=== PATIENT | male | born 1940 | race Caucasian/White ===

== ENCOUNTER 2020-02-03 07:59 | Outpatient (CLI) | payer MEDICARE, SELFPAY ==
--- NOTE | ~2020-02-03 | CT_ITS ---
EXAMINATION: CT soft tissue neck w con DATE: 02/03/2020 08:44 INDICATION: Localized swelling/mass at the left neck TECHNIQUE: Computed tomography (CT) of the neck was performed with 75 mL Omnipaque-350 intravenous co ntrast. Automated exposure control and iterative reconstruction technique were employed. The dose-torsten gth product was 425.81 mGy-cm. COMPARISON: 12/09/2014 and 03/18/2014 FINDINGS: Postoperative change consistent with reported left-sided tonsillectomy, partial glossectomy and left neck dissection. There is a new 1.6 x 1.5 cm thick-walled cystic or centrally necrotic mass in the le ft parotid gland which could represent either a primary parotid neoplasm or enlarged lymph node. Righ t parotid and submandibular glands and the thyroid are unremarkable. No other masses or pathologicall y enlarged cervical lymphadenopathy. Chronic small calcified nodules in the soft tissues adjacent to the bilateral piriform sinuses and in the anterior superior mediastinum which could represent sequela of old granulomatous disease or phleboliths. Atherosclerotic disease of the bilateral carotid bulbs with 25% stenosis on the right and 50% stenosis on the left. Severe emphysema with mild biapical pleu ral-parenchymal scarring. Moderate to severe cervical spondylosis. IMPRESSION: 1. New 1.6 x 1.5 cm left parotid mass which given patient history is most concerning for recurrent me tastatic disease. Differential would also include primary parotid neoplasm either benign or malignant or suppurative lymph node in the appropriate clinical setting. Consider ultrasound-guided fine-needl e aspiration for further evaluation. 2. Severe emphysema. Reviewed, dictated and finalized at location A. IMPRESSION: 1. New 1.6 x 1.5 cm left parotid mass which given patient history is most jesus alberto rning for recurrent metastatic disease. Differential would also include primary parotid neoplasm either benign or malignant or suppurative lymph node in the a ppropriate clinical setting. Consider ultrasound-guided fine-needle aspiration for further evaluation. 2. Severe emphysema.
[2020-02-03 08:40] LABS: Estimated Glomerular Filt Rate > 60
== END 2020-02-03 08:00 | disposition home or self-care (01) ==
PROVIDERS: PCP Family Medicine
DX: R22.1 Localized swelling, mass and lump, neck (principal); J43.9 Emphysema, unspecified
CPT/HCPCS: 36415; 70491; Q9967

== ENCOUNTER 2021-02-06 10:52 | Emergency (ER) | payer MEDICARE, SELFPAY ==
[2021-02-06 11:00] VITALS: BP 212/112; PULSE 92; RESP 20; TEMP 36.2; O2SAT 95
--- NOTE | 2021-02-06 11:11 | ED.WOUNDLAC ---
HPI - Wound/Laceration General Chief Complaint: Wound/Laceration Stated Complaint: left thumb lac Time Seen by Provider: 02/06/21 11:06 History of Present Illness HPI narrative: 80 yo male presents to the ED with a table saw injury. He was reaching for a piece of wood and accidentally touched his left thumb to the blade. He has a laceartion to palmar aspect. He reports distal motor and sensory intact. Unsure of tetanus status. Related Data Home Medications Medication Instructions Recorded Confirmed aspirin 81 mg tablet,delayed 81 mg PO DAILY 11/03/19 release Allergies Allergy/AdvReac Type Severity Reaction Status Date / Time No Known Allergies Allergy Verified 02/06/21 11:02 Review of Systems Review of Systems: All systems reviewed & are unremarkable except as noted in HPI and below Constitutional: Constitutional: Denies fever(s) and Denies weakness ENT: Reports system reviewed and no additional complaints, except as documented Cardiovascular: Cardiovascular: Reports no additional cardiovascular complaints PMFSH Past Medical History Medical History Anxiety CAD (coronary artery disease) History of stroke Hyperlipidemia Hypogonadism in male Skin cancer of face Surgical History Surgical History History of tonsillectomy Family History Family History Father Cancer Social History Social History Smoking status: Former smoker Smoking end date: 11/12/97 Alcohol intake: former Substance use: never Substance use type: does not use Gender identity (if verbalized by the patient): Male Exam Const: General: no acute distress and alert Nutritional Appearance: thin Orientation/consciousness: patient oriented x3 HENMT: Head: normal to inspection Neck: Neck: normal visual inspection Resp: Effort & Inspection: normal respiratory effort Auscultation: clear to auscultation bilaterally Cardio: Rate: regular rate Rhythm: regular rhythm Other: 2 + left radial Skin: Wounds: wounds noted (left thumb flap laceration, maceration of the border and underlying tissue) Neuro: General: patient oriented x3, moves all extremities and no focal motor deficits Speech: normal speech Extrem: Other: Full ROM of left thumb Course Vital Signs Vital signs: Vital Signs Temperature 36.2 C L 02/06/21 11:00 Pulse Rate 92 02/06/21 11:00 Respiratory Rate 20 02/06/21 11:00 Blood Pressure 212/112 H 02/06/21 11:00 Pulse Oximetry 95 02/06/21 11:00 Temperature 36.4 C L 02/06/21 13:00 Pulse Rate 91 02/06/21 13:00 Respiratory Rate 19 02/06/21 13:00 Blood Pressure 189/90 H 02/06/21 13:00 Pulse Oximetry 97 02/06/21 13:00 Procedures Laceration Laceration 1: Site: hand Side (If applicable): left (thumb) Size (cm): 4 Description: flap Depth: simple, single layer Local Anesthetic: lidocaine 1% Amount of anesthesia used (mL): 3 Pre-repair: wound explored and irrigated extensively (small piece of wood removed) ====== Skin Level ====== Skin layer closed with: nylon Size (cm): 5-0 Number of sutures: 12 Technique: simple, interrupted and horizontal mattress ====== Subcutaneous Layer ====== Subcutaneous layer closed with: vicryl Size: 5-0 Number of sutures: 6 ====== Muscle Layer ====== ====== Tendon Layer ====== MDM - Wound/Laceration MDM Narrative Medical decision making narrative: He has significant soft tissue injury. Laceration closed relatively well. Differential Diagnosis Differential diagnosis: Likely laceration Medical Records Attestation: I reviewed the patient's medical records. Discharge Plan Discharge Clinical Impression
[2021-02-06 13:00] VITALS: BP 189/90; PULSE 91; RESP 19; TEMP 36.4; O2SAT 97
[2021-02-06] MEDS: TETANUS,DIPHTHERIA,AC PERTUSSIS ADULT (0.5 ML) BOOSTRIX IM (13:15)
== END 2021-02-06 13:30 | disposition home or self-care (01) ==
PROVIDERS: Emergency Provider Emergency Medicine; PCP Family Medicine
DX: S61.022A Laceration with foreign body of left thumb without damage to nail, initial encounter (principal); Z23 Encounter for immunization; I25.10 Atherosclerotic heart disease of native coronary artery without angina pectoris; E78.5 Hyperlipidemia, unspecified; Z85.828 Personal history of other malignant neoplasm of skin; Z86.73 Personal history of transient ischemic attack (TIA), and cerebral infarction without residual deficits; Z87.891 Personal history of nicotine dependence; Z79.82 Long term (current) use of aspirin; W31.2XXA Contact with powered woodworking and forming machines, initial encounter
CPT/HCPCS: 12042; 90471; 90715; 99283

== ENCOUNTER 2022-05-16 11:03 | Observation (INO) | payer MEDICARE, SELFPAY ==
[2022-05-16] VITALS (42 sets, daily range): BP systolic 75–120; BP diastolic 43–71; PULSE 76–102; RESP 14–26; TEMP 36.2–36.6; O2SAT 96–100; BMI 20.9; BMI 19.1
--- NOTE | 2022-05-16 11:17 | ECG_ITS ---
Measurements Intervals [place] Rate: 95 P: 75 ID: [id number] QRS: -13 QRSD: 84 T: 78 QT: 325 QTc: 410 Interpretive Statements SINUS RHYTHM INCOMPLETE RIGHT BUNDLE BRANCH BLOCK BASELINE WANDER- V4-V5 BORDERLINE ECG Electronically Signed On 05-16-2022 13:50:13 CDT by Cole Jones D.O.
[2022-05-16 11:33] LABS: Basophils Absolute Auto 0.1 K/mm3 (0.0-0.1); Basophils Percent Auto 0.8 % (0.2-1.2); Eosinophils Absolute Auto 0.1 K/mm3 (0-0.3); Eosinophils Percent Auto 0.8 % (0-4.4); Hematocrit 38.3 % (42.0-52.0); Hemoglobin 12.5 g/dL (14.0-18.0); Immature Granulocyte Absolute 0.02 K/mm3 (0.00-0.031); Immature Granulocyte Percent A 0.3 % (0-0.5); Lymphocytes Absolute Auto 0.68 K/mm3 (0.9-3.2); Lymphocytes Percent Auto 9.3 % (18.3-44.2); Mean Corpuscular HGB Conc 32.6 g/dl (32-36); Mean Corpuscular Hemoglobin 28.7 pg (26-34); Mean Corpuscular Volume 87.8 fl (80-100); Mean Platelet Volume 9.9 fl (7.4-10.4); Monocytes Absolute Auto 0.7 K/mm3 (0.1-0.6); Monocytes Percent Auto 9.7 % (2.6-8.5); Neutrophils Absolute Auto 5.8 K/mm3 (1.3-6.7); Neutrophils Percent Auto 79.1 % (45.5-73.1); Platelet Count Result 192 k/mm3 (150-375); Red Blood Count 4.36 M/mm3 (4.6-6.20); Red Cell Distribution Width 14.4 % (11.5-14.5); White Blood Count 7.3 K/mm3 (4.5-10.0)
[2022-05-16 11:47] LABS: Alanine Aminotransferase 17 U/L (6-50); Albumin Level 4.5 g/dL (3.5-5.1); Alkaline Phosphatase 70 U/L (38-126); Anion Gap 7 mmol/L (8-16); Aspartate Amino Transferase 30 U/L (17-59); Bilirubin,Total 0.3 mg/dL (0.2-1.3); Blood Urea Nitrogen 35 mg/dL (9-20); Carbon Dioxide 28 mmol/L (22-30); Chloride 98 mmol/L (98-107); Estimated CRCL calculation 18 ml/min; Estimated Glomerular Filt Rate 25; Glucose 121 mg/dL (65-110); Potassium 4.1 mmol/L (3.4-5.0); Sodium 133 mmol/L (137-145)
[2022-05-16] MEDS: SODIUM CHLORIDE 0.9% IV 1,000 ML 999 ML IV CONT (12:37)
[2022-05-16 13:58] LABS: SARS-CoV-2 RNA PCR Negative
--- NOTE | 2022-05-16 14:05 | ED.DIZZY ---
HPI - Dizziness General Chief Complaint: Dizziness Stated Complaint: Dizzy spells Time Seen by Provider: 05/16/22 12:01 History of Present Illness HPI Narrative: Patient is an 81-year-old male who presents ER with dizziness. Ongoing over the last 5 days. Worse with going from sitting to standing. Feels off balance when he is ambulating. Will last for couple hours at a time. Worsened acutely today while he was outside working and became overly hot while under a tree. He also feels sweaty and nauseated when this occurs. Has some history of vertigo in the past. No recent sinus congestion or sore throat or productive cough. Patient also has history of lung cancer for which she is received radiation treatments and no chemotherapy. Related Data Home Medications Medication Instructions Recorded Confirmed aspirin 325 mg tablet 325 mg PO DAILY 05/16/22 05/16/22 diphenhydramine HCl 25 mg tablet 25 mg PO QHS PRN Insomnia 05/16/22 05/16/22 (Benadryl Allergy) lisinopril 10 1 tablet PO DAILY 05/16/22 05/16/22 mg-hydrochlorothiazide 12.5 mg tablet multivitamin with minerals-folic 1 tablet PO DAILY 05/16/22 05/16/22 acid 0.4 mg tablet (One Daily Essential) Allergies Allergy/AdvReac Type Severity Reaction Status Date / Time No Known Allergies Allergy Verified 05/10/22 15:45 Review of Systems Review of Systems: All systems reviewed & are unremarkable except as noted in HPI and below Constitutional: Constitutional: Denies chills, Reports fatigue and Denies fever(s) Cardiovascular: Cardiovascular: Denies chest pain and Denies radiating jaw, neck or arm pain Respiratory: Respiratory: Denies cough and Denies dyspnea Gastrointestinal: Gastrointestinal: Denies abdominal pain, Reports nausea and Denies vomiting Neurologic: Reports dizziness, Denies syncope, Denies headache(s), Denies focal weakness and Denies numbness [facility] Past Medical History Medical History (Updated 05/16/22 @ 21:51 by Suman Marin MD) Anxiety CAD (coronary artery disease) CVA (cerebral vascular accident) Head and neck malignancy History of stroke Hyperlipidemia Hypertension Hypogonadism in male Skin cancer of face Surgical History Surgical History (Updated 05/16/22 @ 16:43 by Susie Zhong NP) History of removal of pigmented skin lesion History of tonsillectomy Family History Family History Father Cancer Social History Social History (Updated 05/16/22 @ 16:44 by Susie Zhong NP) Social History: The patient lives with his who is the durable power managing attorney for healthcare. The patient has 3 children. He is retired from [employer]. He desires to be a full code. He is a former smoker. Smoking status: Former smoker Tobacco type: cigarettes and cigars Smoking end date: 01/10/01 Additional smoking assessment comments: smoked cigarettes but stopped long time ago. Alcohol intake: former Alcohol use details: 20 years ago. Substance use: never Substance use type: does not use Gender identity (if verbalized by the patient): Male Spiritual care concerns: No Exam Narrative: GENERAL: Well-appearing, well-nourished, and in no acute distress. HEAD: Normocephalic, atraumatic. EYES: PERRL and EOMI. ENT: Mucous membranes moist CHEST: Clear to auscultation. No respiratory distress. HEART: Regular rate and rhythm. Normal peripheral pulses. ABDOMEN: Soft, nontender, nondistended. EXTREMITIES: Normal range of motion. No edema. SKIN: Warm, dry, no rash. NEURO: No focal deficits. Alert and oriented x3. PSYCH: Normal mood and affect. Course Course Emergency Course: Patient very hypertensive upon arrival. Not responding to fluids. Informed of need for hospitalization observation patient verbalized understanding. Vital Signs Vital signs: Vital Signs Temperature 97.3 F L 05/16/22 11:11 Pulse Rate 102 H 05/16/22 11:11 Respir
[2022-05-16] MEDS: SODIUM CHLORIDE 0.9% IV 1,000 ML 125 ML IV CONT (15:58)
--- NOTE | 2022-05-16 16:02 | PM.IMHP ---
H&P: HPI History of Present Illness Date/Time: 05/16/22 16:02 Chief Complaint: Dizziness Narrative: This is a 81-year-old male patient who has had a history of skin cancer and has completed radiation treatment over 5 years ago Patient stated that he was doing some work outside and he started to feel dizzy. The patient did not fall. He is not currently taking any diuretics. He denies having any history of any chronic kidney disease. His H&H today was 12.5 and 38.3 which was normal last year. Sodium 133 today. Creatinine 2.5. GFR is 25. Glucose is 121. He was negative for COVID. Review of Systems Review of Systems: All systems reviewed & are unremarkable except as noted in HPI and below Constitutional: Constitutional: Reports as per HPI and Reports no additional constitutional complaints Eyes: Eyes: Reports as per HPI and Reports no additional eye complaints ENT: Reports system reviewed and no additional complaints, except as documented and Reports Normal hearing present Cardiovascular: Cardiovascular: Reports no additional cardiovascular complaints Respiratory: Respiratory: Reports no additional respiratory complaints and Reports no additional respiratory complaints Gastrointestinal: Gastrointestinal: Reports as per HPI and Reports no additional gastrointestinal complaints Musculoskeletal: Musculoskeletal: Reports no additional musculoskeletal complaints Integumentary/Breasts: Skin/Breast: Reports system reviewed and no additional complaints, except as docu and Reports as per HPI Neurologic: Reports system reviewed and no additional complaints, except as documented, Reports as per HPI and Reports Normal hearing present Psychiatric: Psychiatric: Reports no additional psychiatric complaints and Reports as per HPI Endocrine: Endocrine: Reports no additional endocrine complaints Hematologic/Lymphatic: Hematologic/Lymphatic: Reports no additional hematologic/lymphatic complaints Allergic/Immunologic: Allergic/Immunologic: Reports no additional allergic/immunologic complaints [facility], [facility] Past Medical History Medical History (Updated 05/16/22 @ 16:51 by Susie Zhong NP) Anxiety CAD (coronary artery disease) CVA (cerebral vascular accident) Head and neck malignancy History of stroke Hyperlipidemia Hypertension Hypogonadism in male Skin cancer of face Surgical History Surgical History (Updated 05/16/22 @ 16:43 by Susie Zhong NP) History of removal of pigmented skin lesion History of tonsillectomy Family History Family History Father Cancer Social History Social History (Updated 05/16/22 @ 16:44 by Susie Zhong NP) Social History: The patient lives with his who is the durable power defense attorney for healthcare. The patient has 3 children. He is retired from [email or web address]. He desires to be a full code. He is a former smoker. Smoking status: Former smoker Tobacco type: cigarettes, pipe and cigars Smoking end date: 01/10/01 Additional smoking assessment comments: smoked cigarettes but stopped long time ago. Alcohol intake: former Alcohol use details: 20 years ago. Substance use: never Substance use type: does not use Gender identity (if verbalized by the patient): Male Spiritual care concerns: No Meds Home Medications and Allergies Home Medications Medication Instructions Recorded Confirmed Type aspirin 81 mg tablet,delayed 81 mg PO DAILY 11/03/19 05/16/22 History release (Aspir-Low) rosuvastatin 40 mg tablet 40 mg PO DAILY #90 tabs 10/10/21 05/16/22 Rx testosterone cypionate 200 mg/mL 200 mg IM MONTHLY #3 mL 05/10/22 05/16/22 Rx intramuscular oil multivitamin with minerals-folic 1 tablet PO 05/16/22 History acid 0.4 mg tablet (One Daily Essential) Allergies Allergy/AdvReac Type Severity Reaction Status Date / Time No Known Allergies Allergy Verified 05/10/22 15:45 Vital Sign
--- NOTE | 2022-05-16 18:10 | PC.NURSE ---
This patient, Ramon Sullivan , was admitted to 3 [facility] Surg Room 320-01. Patient/family oriented to hospital policies and general routines including ID bracelet, bed and alarms, visiting hours, pain management, procedures, bathroom and other care routines, personal items, smoking policy, room service/diet, and visiting hours. Information on how to activate the Rapid Response Team has been discussed. Patient/Family are encouraged to report perceived risks to care and to ask questions if they do not understand what they are told or what they should do.
[2022-05-16 20:18] LABS: Anion Gap 7 mmol/L (8-16); Blood Urea Nitrogen 29 mg/dL (9-20); Calcium 9.1 mg/dL (8.4-10.2); Carbon Dioxide 27 mmol/L (22-30); Chloride 101 mmol/L (98-107); Estimated CRCL calculation 21 ml/min; Estimated Glomerular Filt Rate 34; Glucose 105 mg/dL (65-110); Potassium 3.3 mmol/L (3.4-5.0); Sodium 135 mmol/L (137-145)
[2022-05-17] MEDS: SODIUM CHLORIDE 0.9% IV 1,000 ML 125 ML IV CONT ×2 (01:48→10:00)
[2022-05-17 02:18] LABS: Total Protein Urine Random 73 mg/dL
[2022-05-17 06:00] VITALS: BP 100/60; PULSE 80; RESP 16; TEMP 36.9; O2SAT 94
[2022-05-17 07:30] LABS: Hematocrit 36.1 % (42.0-52.0); Hemoglobin 12.1 g/dL (14.0-18.0); Mean Corpuscular HGB Conc 33.5 g/dl (32-36); Mean Corpuscular Hemoglobin 29.2 pg (26-34); Mean Platelet Volume 9.9 fl (7.4-10.4); Platelet Count Result 165 k/mm3 (150-375); Red Blood Count 4.15 M/mm3 (4.6-6.20); Red Cell Distribution Width 14.4 % (11.5-14.5); White Blood Count 5.7 K/mm3 (4.5-10.0)
[2022-05-17 07:57] LABS: Alanine Aminotransferase 13 U/L (6-50); Albumin Level 3.7 g/dL (3.5-5.1); Alkaline Phosphatase 63 U/L (38-126); Anion Gap 6 mmol/L (8-16); Aspartate Amino Transferase 28 U/L (17-59); Bilirubin,Total 0.3 mg/dL (0.2-1.3); Blood Urea Nitrogen 23 mg/dL (9-20); Calcium 8.9 mg/dL (8.4-10.2); Carbon Dioxide 25 mmol/L (22-30); Chloride 104 mmol/L (98-107); Estimated CRCL calculation 25 ml/min; Estimated Glomerular Filt Rate 42; Glucose 90 mg/dL (65-110); Potassium 3.4 mmol/L (3.4-5.0); Sodium 135 mmol/L (137-145)
[2022-05-17] MEDS: ASPIRIN 81 MG ENTERIC TABLET PO (08:40)
[2022-05-17] MEDS: ROSUVASTATIN 10 MG TABLET 40 MG PO (08:40)
[2022-05-17 09:01] VITALS: BP 126/92; PULSE 83
[2022-05-17 09:16] LABS: Creatine Kinase 63 U/L (55-170)
[2022-05-17 10:35] VITALS: BMI 19.1
[2022-05-17 11:29] VITALS: PULSE 77; O2SAT 93
[2022-05-17 12:17] VITALS: BP 120/72; PULSE 83
[2022-05-17 12:18] VITALS: BP 102/64; PULSE 84
--- NOTE | 2022-05-17 12:57 | PM.DS ---
DS: Admitting Diagnosis Discharge Date 05/17/2022 1257 Admitting Diagnosis Acute kidney failure, unspecified Dizziness DS: Discharge Diagnosis Discharge Diagnosis (1) Acute kidney injury: Code(s): N17.9 - Acute kidney failure, unspecified Status: Acute (2) Dehydration: Code(s): E86.0 - Dehydration Status: Acute (3) Dizziness: Code(s): R42 - Dizziness and giddiness Status: Acute (4) Hypertension: Qualifiers: Hypertension type: primary hypertension Qualified Code(s): I10 - Essential (primary) hypertension Code(s): I10 - Essential (primary) hypertension Status: Chronic DS: Summary Hospital Course Hospital Course: Ramon Sullivan Sr is an 81-year-old male, with medical history of skin cancer, hypertension, CAD, stroke, hypogonadism, and anxiety. He presented to the ED for dizziness. He reported doing work outside and he started to feel dizzy. He reported intermittent dizziness for the past week. No falls or LOC. He denied history of any chronic kidney disease.? No c/o chest pain, SOB, abdominal pain, N/V/D, constipation, fever, chills or sick contacts. He endorsed decreased food and water intake. His reported patient drinks only sips of water throughout the day. In the ED, he was mildly tachycardic with HR 102, BP 120/64, RR 16, temp 97.2F, and SpO2 100% on room. Lab work showed mildly elevated sodium 133, elevated creatinine 2.5, GFR 25 and glucose 121. He had otherwise unremarkable CBC and chemistry. He received 1 liter NS bolus and started on maintenance fluids. The patient was referred for observation. He received an additional 1 liter of NS fluids. Lisinopril and HCTZ were held. Orthostatic vitals were negative for >20 mmHg systolic or >10 mmHg diastolic change. His dizziness had resolved by the day of discharge. He was eating and drinking without complaints. Renal function showed some improvement. He was instructed on oral hydration throughout the day, as well as to increase oral water intake if out in the heat or with physical activity. He was also instructed to avoid outdoor activities during the hottest times of the day. He was discharged home with his in stable condition. He was instructed to hold his lisinopril/HCTZ for 2 days and then resume, unless BP was less than 100/50. Patient and verbalized understanding of education. Status at Discharge Cognitive/behavioral status at discharge: AAOX3. Pleasant. Functional status at discharge: independent ambulation Overall status at discharge: patient is back to baseline Time Spent with Patient Time attestation: Total time spent providing and/or coordinating discharge services: Time spent: Less than 30 minutes Exam Narrative: General: No acute distress.? Adult male lying in bed. Well-developed and well-nourished. Mental Status/Psych: Awake, alert and oriented to person and place with clear speech. Neutral mood and affect. Pleasant and cooperate. Skin: Skin fair, warm, dry and intact without rashes or lesions. HEENT: Normocephalic. Conjunctivae are clear. Sclera is non-icteric. PERRL. Hard of hearing. Oral mucosa pink and moist. Tongue midline. Neck: Supple. No JVD. Cardiac: S1 and S2 regular rate and rhythm. No murmurs, gallops, or rubs auscultated. Respiratory: Respirations even and unlabored. Lung sounds are clear to auscultation in all lobes bilaterally without wheezes, rhonchi, or rales. Abdominal: Abdomen soft, round and non-tender to palpation.? Bowel sounds present in all 4 quadrants. Extremities:? Grossly normal ROM all extremities. No edema. Radial and dorsalis pedis pulses +2 bilaterally. Neurological: No focal deficits. Cranial nerves 2-12 grossly intact. DS: Data Data Completed and Pending Labs on day of discharge: Labs from last 24 hours 05/17/22 05/17/22 05/17/22 07:13 07:13 07:11 WBC 5.7 RBC 4.15 L Hgb 12.1 L Hct 36.1 L MCV 87.0 MCH 29.2 MCHC 33.5
[2022-05-19 05:23] LABS: Osmolality, Urine 508 mOsm/kg (50-1200)
[2022-05-21 15:45] LABS: Calculated Total (E+NE) 34 mcg/g cr (9-74); Creatinine, Urine 45 mg/dL (20-320); Dopamine, Urine 142 mcg/g cr (40-390); Epinephrine, Urine 8 mcg/g cr (2-16); Norepinephrine, Urine 26 mcg/g cr (7-65)
== END 2022-05-17 13:32 | disposition home or self-care (01) ==
LOC: ANHED 12:01 → ANH3MEDSUR 21:51
PROVIDERS: Emergency Medicine; Nurse Practitioner; Admitting Provider Student in an Organized Health Care Education/Training Program; Emergency Provider Emergency Medicine; PCP Family Medicine; Visit Provider Nurse Practitioner Family
DX: N17.9 Acute kidney failure, unspecified (principal); E86.0 Dehydration; R42 Dizziness and giddiness; I25.10 Atherosclerotic heart disease of native coronary artery without angina pectoris; E78.5 Hyperlipidemia, unspecified; I10 Essential (primary) hypertension; F41.9 Anxiety disorder, unspecified; Z86.73 Personal history of transient ischemic attack (TIA), and cerebral infarction without residual deficits; Z79.82 Long term (current) use of aspirin; Z85.118 Personal history of other malignant neoplasm of bronchus and lung; Z92.3 Personal history of irradiation; Z87.891 Personal history of nicotine dependence; Z20.822 Contact with and (suspected) exposure to COVID-19
CPT/HCPCS: 36415; 80048; 80053; 81050; 82384; 82550; 82570; 83935; 84156; 85025; 85027; 93005; 96360; 96361; 99285; A9270; C9803; G0378; J7030; U0003; U0005

== ENCOUNTER 2022-06-17 09:49 | Outpatient (CLI) | payer MEDICARE, SELFPAY ==
--- NOTE | ~2022-06-17 | CT_ITS ---
EXAMINATION: CT diagnostic chest wo con DATE: 06/17/2022 11:50 INDICATION: Malignant neoplasm of the lower lobe. TECHNIQUE: Computed tomography (CT) of the chest was performed without intravenous contrast. The dose -length product was 134.50 mGy-cm. Automated exposure control and iterative reconstruction technique were employed. COMPARISON: CT dated 08/18/2008 FINDINGS: Heart size normal. There is mildly enlarged precarinal lymph node measuring 9 mm with inter nal calcification, likely chronic granulomatous disease. No significant pleural or pericardial effusi on. There is atherosclerosis of the aorta and coronary arteries. Upper abdomen is unremarkable. There is severe emphysema. No endobronchial lesions. No pneumothorax. There are clustered nodules in the r ight lower lobe measuring up to 1 cm. There are scattered calcified granulomas bilaterally. No endobr onchial lesions. IMPRESSION: 1. Clustered right lower lobe nodules measuring up to 1 cm, suspicious for malignancy. Recommend [facility] er 3 month follow-up low dose CT chest or pet/CT scan. 2: Severe emphysema. Reviewed, dictated and finalized at location A. IMPRESSION: 1. Clustered right lower lobe nodules measuring up to 1 cm, suspicious for chela gnancy. Recommend either 3 month follow-up low dose CT chest or pet/CT scan. 2: Severe emphysema.
== END 2022-06-17 09:50 | disposition home or self-care (01) ==
PROVIDERS: PCP Family Medicine; Visit Provider Radiology Radiation Oncology
DX: R91.8 Other nonspecific abnormal finding of lung field (principal); J43.9 Emphysema, unspecified
CPT/HCPCS: 71250

== ENCOUNTER 2022-09-21 09:59 | Outpatient (CLI) | payer MEDICARE, SELFPAY ==
--- NOTE | ~2022-09-21 | CT_ITS ---
EXAMINATION: CT chest high resolution wo oh DATE: 09/21/2022 10:12 INDICATION: Shortness of breath, history of lung cancer TECHNIQUE: Computed tomography (CT) of the chest was performed without intravenous contrast. The dose -length product (DLP) was 186.70 mGy-cm. Automated exposure control and iterative reconstruction tech [employer] were employed. COMPARISON: 06/17/2022 FINDINGS: There is severe emphysema. There are worsening airspace opacities in the right lower lobe. The previously described pulmonary nodules are now indistinguishable from the developing airspace opa city. No pleural effusion or pneumothorax. The heart size is normal. Calcified right paratracheal and right hilar lymph nodes are consistent with old granulomatous disease. There is calcified coronary a rtery atherosclerosis. There are nonobstructing stones of the left kidney. There is severe thoracic s pondylosis. IMPRESSION: 1. Worsening airspace opacities in the right lower lobe which could be infectious versus malignancy. Consider biopsy if the patient is not on home oxygen. There are two severe emphysema. Reviewed, dictated and finalized at location B. NDER MACHINE OPERATOR IMPRESSION: 1. Worsening airspace opacities in the right lower lobe which could be infectio us versus malignancy. Consider biopsy if the patient is not on home oxygen. The re are two severe emphysema.
== END 2022-09-21 10:00 | disposition home or self-care (01) ==
LOC: ANHIMG 10:00
PROVIDERS: PCP Family Medicine; Visit Provider Radiology Radiation Oncology
DX: C34.31 Malignant neoplasm of lower lobe, right bronchus or lung (principal)
CPT/HCPCS: 71250

== ENCOUNTER 2022-12-12 09:01 | Outpatient (CLI) | payer MEDICARE, SELFPAY ==
--- NOTE | ~2022-12-12 | PE_ITS ---
EXAMINATION: PET skull to mid thigh DATE: 12/12/2022 11:01 INDICATION: Malignant neoplasm of lower lobe, right bronchus. TECHNIQUE: Blood glucose level was 82 mg/dL. 10.827 mCi of 18-fluorodeoxyglucose (18-FDG) was adminis tered i.v. Low dose computed tomography (CT) images were acquired from the base of the brain to the p roximal thighs for attenuation correction and anatomic localization. Automated exposure control was e mployed. Dose-length product (DLP) was 413 mGy-cm. Positron emission tomography (PET) images were acq uired in the same distribution. COMPARISON: Chest CT 09/21/2022 FINDINGS: Head/neck: There is increased activity in the oral cavity, nose, pharynx, and glottis without abnorma l CT correlate, likely physiologic. There are no pathologically enlarged lymph nodes. Chest: There is severe emphysema. There are airspace opacities in right lower lobe with maximum SUV o f 2.7. No pleural effusion. The heart size is normal. There are coronary artery calcifications. There is increased activity in normal-sized bilateral hilar and mediastinal lymph nodes with SUV up to 8.4 in the right paratracheal chain. Calcified right hilar and mediastinal lymph nodes are consistent wi th old granulomatous disease. Abdomen/pelvis/proximal thighs: The liver, gallbladder, spleen, pancreas, adrenal glands, and kidneys are normal. There is prominent fat in right inguinal canal that may be a hernia. There is diverticul osis of the colon without evidence of diverticulitis. There are no dilated loops of bowel. There are no pathologically enlarged lymph nodes. There is no free intraperitoneal fluid. The prostate is mildl y enlarged. There is no osseous malignancy. IMPRESSION: 1. Airspace opacities in right lower lobe with mildly increased activity, consistent with radiation p neumonitis. 2. Normal sized mediastinal and bilateral hilar lymph nodes with increased activity, which may be clau ctive or metastatic disease. Reviewed, dictated and finalized at location A. R SHARPENER IMPRESSION: 1. Airspace opacities in right lower lobe with mildly increased activity, consi stent with radiation pneumonitis. 2. Normal sized mediastinal and bilateral hilar lymph nodes with increased acti vity, which may be reactive or metastatic disease.
[2022-12-12 09:30] LABS: Glucose Point of Care 82 mg/dl (65-105)
== END 2022-12-12 09:02 | disposition home or self-care (01) ==
PROVIDERS: PCP Family Medicine; Visit Provider Radiology Radiation Oncology
DX: C34.31 Malignant neoplasm of lower lobe, right bronchus or lung (principal); R91.8 Other nonspecific abnormal finding of lung field
CPT/HCPCS: 78815; A9552

== ENCOUNTER → 2023-03-08 10:03 | Outpatient (CLI) | payer MEDICARE, SELFPAY ==
--- NOTE | ~2023-03-08 | CT_ITS ---
Clinical Indication: Lung cancer CT Scan of the Chest with Contrast: Technique: Contiguous sections were acquired throughout the chest after intravenous administration of 75 cc of Omnipaque 350. Dose reduction technique was used on this scan by utilizing automated exposu re control and iterative reconstruction technique. The dose-length product (DLP) was 191.03 mGy-cm. COMPARISON: 09/21/2022 Findings: There is no evidence of any significant mediastinal, hilar or axillary lymphadenopathy. There is no f illing defect in the pulmonary arterial tree to suggest pulmonary embolus. There is no evidence of ao rtic dissection or aneurysm. Atherosclerotic calcifications of the aorta and coronary vessels are pre sent. There is no evidence of pleural or pericardial effusion. Severe emphysema present. There is airspace consolidation the right lower lobe, somewhat more conflue nt but with decreased extent as compared to prior exam. Images through the upper abdomen reveal probable right hepatic lobe hemangioma. Impression: Airspace consolidation right lower lobe. This could reflect chronic postinflammatory change or post t reatment change. Correlate for acute infection. Active malignancy difficult to completely exclude, th ough the morphology is atypical for this diagnosis. Severe emphysema. Reviewed, dictated and finalized at location . Impression: Airspace consolidation right lower lobe. This could reflect chronic postinflamm atory change or post treatment change. Correlate for acute infection. Active ma lignancy difficult to completely exclude, though the morphology is atypical for this diagnosis. Severe emphysema.
[2023-03-08 10:25] LABS: Estimated Glomerular Filt Rate > 60
== END ==
PROVIDERS: PCP Family Medicine; Visit Provider Radiology Radiation Oncology
DX: C34.31 Malignant neoplasm of lower lobe, right bronchus or lung (principal); J43.9 Emphysema, unspecified
CPT/HCPCS: 71260; Q9967

== ENCOUNTER → 2023-09-18 10:13 | Outpatient (CLI) | payer MEDICARE, SELFPAY ==
--- NOTE | ~2023-09-18 | CT_ITS ---
Clinical Indication: Lung cancer CT Scan of the Chest with Contrast: Technique: Contiguous sections were acquired throughout the chest after intravenous administration of 75 cc of Omnipaque 350. Dose reduction technique was used on this scan by utilizing automated exposu re control and iterative reconstruction technique. The dose-length product (DLP) was 183.42 mGy-cm. COMPARISON: 03/08/2023 Findings: There is no evidence of any significant mediastinal, hilar or axillary lymphadenopathy. There is no f illing defect in the pulmonary arterial tree to suggest pulmonary embolus. There is no evidence of ao rtic dissection or aneurysm. There are atherosclerotic calcifications of the aorta and coronary arter ies There is no evidence of pleural or pericardial effusion. There is severe emphysema. Stable area of consolidation present in the right lower lobe. Images through the upper abdomen reveal stable probable hepatic hemangioma in the inferior right hepa tic lobe. Impression: Stable area of consolidation right lower lobe. Lack of interval change suggests post therapy change a nd/or treated disease. Correlate clinically. Severe emphysema. Reviewed, dictated and finalized at location . ENTER RAILCAR Impression: Stable area of consolidation right lower lobe. Lack of interval change suggests post therapy change and/or treated disease. Correlate clinically. Severe emphysema.
[2023-09-18 10:40] LABS: Estimated Glomerular Filt Rate 58
== END ==
PROVIDERS: PCP Family Medicine; Visit Provider Radiology Radiation Oncology
DX: J43.9 Emphysema, unspecified (principal); C34.31 Malignant neoplasm of lower lobe, right bronchus or lung
CPT/HCPCS: 71260; Q9967

== ENCOUNTER 2023-12-15 08:44 | Emergency (ER) | payer MEDICARE, SELFPAY ==
[2023-12-15] VITALS (9 sets, daily range): BP systolic 116–184; BP diastolic 69–83; PULSE 89–106; RESP 16–26; TEMP 36.5; O2SAT 92–100
--- NOTE | ~2023-12-15 | CT_ITS ---
EXAMINATION: CTA chest PE protocol DATE: 12/15/2023 10:25 INDICATION: Shortness of breath, history of long of throat cancer TECHNIQUE: Computed tomography angiography (CTA) of the chest was performed with 100 mL Omnipaque-350 intravenous contrast timed to evaluate the pulmonary arteries. Coronal maximum intensity projection 3D-reconstructions were created by the technologist. The dose-length product (DLP) was 446.68 mGy-cm. Automated exposure control and iterative reconstruction technique were employed. COMPARISON: 09/18/2023 FINDINGS: The pulmonary arteries are well-opacified. No pulmonary embolism is identified. There is se nadja emphysema of the upper lung zones. There are airspace opacities of the right lower lobe with int erval worsening since the comparison examination. No pleural effusion or pneumothorax. No pathologica lly enlarged thoracic lymph nodes are identified. The heart size is normal. There is moderate thoraci c spondylosis. IMPRESSION: 1. No pulmonary embolus identified. 2. Worsening airspace opacities of the right lower lobe consistent with worsening malignancy versus p neumonia superimposed on treatment change. Reviewed, dictated and finalized at location F. OR NETWORK SYSTEMS ENGINEER IMPRESSION: 1. No pulmonary embolus identified. 2. Worsening airspace opacities of the right lower lobe consistent with worseni ng malignancy versus pneumonia superimposed on treatment change.
--- NOTE | ~2023-12-15 | XR_ITS ---
EXAMINATION: XR chest 1V portable INDICATION: Shortness of breath TECHNIQUE: Portable AP chest at 0928 hours COMPARISON: 05/23/2017; CT, 09/18/2023 FINDINGS: There are airspace opacities of the right lower lung zone. No pleural effusion or pneumotho rax. There are lucencies of the upper lung zones. The cardiomediastinal silhouette is normal. IMPRESSION: 1. Airspace opacities of the right lower lung zone, likely treatment change. 2. Emphysema. Reviewed, dictated and finalized at location F. SHER POLISHER
--- NOTE | 2023-12-15 09:06 | ED.GENADULT ---
HPI - General Adult General Chief complaint: Upper Respiratory Infection Stated complaint: N/V, I have the flu Time Seen by Provider: 12/15/23 08:53 History of Present Illness HPI narrative: 83-year-old male presenting to the emergency department for evaluation decreased p.o. intake and increased cough and congestion. Patient was recently diagnosed with influenza. Patient states his symptoms have been worsening over the last few days. Patient does have a previous diagnosis of lung cancer and is a previous smoker. Related Data Home Medications Medication Instructions Recorded Confirmed aspirin 325 mg tablet 325 mg PO DAILY 05/16/22 10/15/23 diphenhydramine HCl 25 mg tablet 25 mg PO QHS PRN Insomnia 05/16/22 10/15/23 (Benadryl Allergy) Allergies Allergy/AdvReac Type Severity Reaction Status Date / Time No Known Allergies Allergy Verified 12/15/23 09:00 Review of Systems Review of Systems: All systems reviewed & are unremarkable except as noted in HPI and below PMFSH Past Medical History Medical History Anxiety CAD (coronary artery disease) Chronic renal insufficiency, stage III (moderate) CVA (cerebral vascular accident) Head and neck malignancy History of stroke Hyperlipidemia Hypertension Hypogonadism in male Skin cancer of face Surgical History Surgical History History of removal of pigmented skin lesion History of tonsillectomy Family History Family History Father Cancer Social History Social History Social History: The patient lives with his who is the durable power assistant county attorney for healthcare. The patient has 3 children. He is retired from [employer]. He desires to be a full code. He is a former smoker. Smoking packs per day: 1 Smoking cigarettes per day: 20.0 Years smoked: 30 Smoking pack-years: 30.00 Smoking status: Former smoker Tobacco type: cigarettes and cigars Smoking end date: 01/10/01 Additional smoking assessment comments: smoked cigarettes but stopped long time ago. Alcohol intake: former Alcohol use details: 20 years ago. Substance use: never Substance use type: does not use Lack of Transportation: No Lack of Food: Never True Current Housing: I Have Housing Concerned About Future Housing: No Difficulty Paying Gas/Electric Bills: No Difficulty Paying for Meds: No Currently Unemployed: No Education: Grade School Difficulty w/ Childcare or Family Care: No Living arrangements: with family Occupation/Education: retired Gender identity (if verbalized by the patient): Male Spiritual care concerns: No Exam Narrative: APPEARANCE: Well appearing, no pain, no distress, well-nourished. HEAD: normocephalic, atraumatic. EYES: PERRLA/EOMI, conjunctivae clear. NOSE: Normal no drainage NECK: Supple. No adenopathy, no masses. RESPIRATORY: Airway patent, respirations nonlabored. Clear to auscultation bilaterally, no rales, rhonchi, wheezing. CARDIOVASCULAR: Regular rate and rhythm without murmurs rubs or gallops. ABDOMINAL: Soft, nontender, nondistended, normal bowel sounds MUSCULOSKELETAL: Moves all extremities. Strength/ROM intact, No edema, No calf tenderness. NEURO: Alert. Cranial nerves II through XII intact. Grossly intact SKIN: Warm, dry. Normal Color Course Course Emergency Course: 83-year-old male present to the emergency department for evaluation of increased cough and congestion. Patient did test positive for influenza A but patient states symptoms have been going on for greater than a week. CTA showed no evidence of pulmonary embolism but was concerned of possible worsening malignancy versus an underlying pneumonia. Patient states he does have follow-up with nc
[2023-12-15] MEDS: ALBUTEROL SULFATE NEB 2.5 MG/3 ML INH INHALATION (09:10)
[2023-12-15 09:11] LABS: Basophils Percent Auto 0.3 % (0.2-1.2); Eosinophils Absolute Auto 0.1 K/mm3 (0-0.3); Eosinophils Percent Auto 1.4 % (0-4.4); Hematocrit 50.7 % (42.0-52.0); Hemoglobin 15.9 g/dL (14.0-18.0); Immature Granulocyte Absolute 0.04 K/mm3 (0.00-0.031); Immature Granulocyte Percent A 0.6 % (0-0.5); Lymphocytes Absolute Auto 1.27 K/mm3 (0.9-3.2); Lymphocytes Percent Auto 19.2 % (18.3-44.2); Mean Corpuscular HGB Conc 31.4 g/dl (32-36); Mean Corpuscular Hemoglobin 27.4 pg (26-34); Mean Corpuscular Volume 87.3 fl (80-100); Monocytes Absolute Auto 0.7 K/mm3 (0.1-0.6); Monocytes Percent Auto 10.6 % (2.6-8.5); Neutrophils Absolute Auto 4.5 K/mm3 (1.3-6.7); Neutrophils Percent Auto 67.9 % (45.5-73.1); Platelet Count Result 192 k/mm3 (150-375); Red Blood Count 5.81 M/mm3 (4.6-6.20); Red Cell Distribution Width 14.5 % (11.5-14.5); White Blood Count 6.6 K/mm3 (4.5-10.0)
[2023-12-15 09:48] LABS: Influenza A QL RT-PCR Positive (Negative); Influenza B QL RT-PCR Negative (Negative); RSV RNA, RT-PCR Negative (Negative); SARS-CoV-2 RNA PCR Negative (Negative)
[2023-12-15] MEDS: SODIUM CHLORIDE 0.9% IV 1,000 ML 999 ML IV CONT (09:55)
[2023-12-15 10:00] LABS: Alanine Aminotransferase 28 U/L (6-50); Alkaline Phosphatase 104 U/L (38-126); Anion Gap 6 mmol/L (8-16); Aspartate Amino Transferase 59 U/L (17-59); Bilirubin,Total 0.6 mg/dL (0.2-1.3); Blood Urea Nitrogen 9 mg/dL (9-20); Calcium 9.7 mg/dL (8.4-10.2); Carbon Dioxide 31 mmol/L (22-30); Chloride 102 mmol/L (98-107); Estimated CRCL calculation 38 ml/min; Estimated Glomerular Filt Rate > 60; Glucose 112 mg/dL (65-110); Potassium 3.5 mmol/L (3.4-5.0); Sodium 139 mmol/L (137-145)
[2023-12-15] MEDS: AMOXICILLIN/CLAVULANATE K 875-125 MG TAB 1 TABLET PO (11:30)
[2023-12-15] MEDS: AZITHROMYCIN 250 MG TABLET 500 MG PO (11:31)
== END 2023-12-15 11:55 | disposition home or self-care (01) ==
PROVIDERS: Emergency Provider Emergency Medicine; PCP Family Medicine
DX: J10.1 Influenza due to other identified influenza virus with other respiratory manifestations (principal); J18.9 Pneumonia, unspecified organism; Z20.822 Contact with and (suspected) exposure to COVID-19; C34.90 Malignant neoplasm of unspecified part of unspecified bronchus or lung; I25.10 Atherosclerotic heart disease of native coronary artery without angina pectoris; I12.9 Hypertensive chronic kidney disease with stage 1 through stage 4 chronic kidney disease, or unspecified chronic kidney disease; N18.30 Chronic kidney disease, stage 3 unspecified; E78.5 Hyperlipidemia, unspecified; Z86.73 Personal history of transient ischemic attack (TIA), and cerebral infarction without residual deficits; Z85.828 Personal history of other malignant neoplasm of skin; Z87.891 Personal history of nicotine dependence; Z79.82 Long term (current) use of aspirin; J43.9 Emphysema, unspecified
CPT/HCPCS: 36415; 71045; 71275; 80053; 85025; 87637; 94640; 96360; 99284; A9270; J7030; Q9967

== ENCOUNTER 2023-12-25 09:06 | Outpatient (CLI) | payer MEDICARE, SELFPAY ==
--- NOTE | ~2023-12-25 | PE_ITS ---
EXAMINATION: PET skull to mid thigh DATE: 12/25/2023 11:19 INDICATION: Malignant neoplasm of lower lobe, right lung. TECHNIQUE: Blood glucose level was 96 mg/dL. 10.708 mCi of 18-fluorodeoxyglucose (18-FDG) was adminis tered i.v. Low dose computed tomography (CT) images were acquired from the base of the brain to the p roximal thighs for attenuation correction and anatomic localization. Automated exposure control was e mployed. Dose-length product (DLP) was 503 mGy-cm. Positron emission tomography (PET) images were acq uired in the same distribution. COMPARISON: PET/CT 12/12/2022, chest CT 12/15/2023 FINDINGS: Head/neck: There are no pathologically enlarged lymph nodes. Chest: There is severe emphysema. There are airspace opacities in right lower lobe with maximum SUV o f 2.3. Calcified pulmonary nodules and calcified hilar and mediastinal lymph nodes are consistent wit h old granulomatous disease. There are normal sized mediastinal and bilateral hilar lymph nodes with increased activity. For example, a 19 x 9 mm right paratracheal node demonstrates maximum SUV of 8.6. No pleural effusion. The heart size is normal. There are coronary artery calcifications. Abdomen/pelvis/proximal thighs: The liver, spleen, gallbladder, pancreas, adrenal glands, and right k idney are normal. There is a 2 mm stone in left kidney. There is calcified atherosclerosis of the aor ta and many of the other arteries. There is diffuse bladder wall thickening, likely secondary to program clerk armani outlet obstruction from the moderately enlarged prostate. There are approximately 5 stones in the bladder measuring up to 11 mm. There is a right inguinal hernia containing fat. There is diverticulo sis of the colon without evidence of diverticulitis. There are no dilated loops of bowel. There is no free intraperitoneal fluid. There is no osseous malignancy. IMPRESSION: 1. Chronic airspace opacities in right lower lobe, likely radiation pneumonitis. 2. Normal-sized mediastinal and bilateral hilar lymph nodes with increased activity again seen, which may be reactive or metastatic disease. Reviewed, dictated and finalized at location A. EYOR OPERATOR IMPRESSION: 1. Chronic airspace opacities in right lower lobe, likely radiation pneumonitis . 2. Normal-sized mediastinal and bilateral hilar lymph nodes with increased acti vity again seen, which may be reactive or metastatic disease.
[2023-12-25 09:28] LABS: Glucose Point of Care 96 mg/dl (65-105)
== END 2023-12-25 09:07 | disposition home or self-care (01) ==
LOC: ANHIMG 09:08
PROVIDERS: PCP Family Medicine; Visit Provider Radiology Radiation Oncology
DX: C34.31 Malignant neoplasm of lower lobe, right bronchus or lung (principal)
CPT/HCPCS: 78815; A9552

== ENCOUNTER 2024-02-12 02:36 | Day surgery (SDC) | payer MEDICARE, SELFPAY ==
[2024-02-04 10:46] VITALS: BMI 20.1
--- NOTE | 2024-02-08 11:03 | SUR.PREOP ---
Patient called regarding upcoming procedure. Reviewed preop instructions, appointment times, and procedure prep.
[2024-02-12 11:11] VITALS: BP 163/78; PULSE 85; RESP 18; TEMP 36.1; O2SAT 96
[2024-02-12] MEDS: LACTATED RINGERS 1,000 ML 150 ML IV CONT (11:31)
--- NOTE | 2024-02-12 11:34 | PM.HPGS ---
History of Present Illness History of Present Illness Consent: Risks, benefits, and alternatives have been discussed and questions answered. Patient agrees to proceed with procedure. 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 status post tonsillectomy and partial glossectomy in 2017 with adjunct radiation therapy, dysphagia since but lately worse, he has to blend his meals, no recent egd Review of Systems Review of Systems: All systems reviewed & are unremarkable except as noted in HPI and below PMFSH Past Medical History Medical History Anxiety CAD (coronary artery disease) Chronic renal insufficiency, stage III (moderate) CVA (cerebral vascular accident) Head and neck malignancy History of stroke Hyperlipidemia Hypertension Hypogonadism in male Skin cancer of face Surgical History Surgical History History of removal of pigmented skin lesion History of tonsillectomy Family History Family History Father Cancer Social History Social History Social History: The patient lives with his who is the durable power city attorney for healthcare. The patient has 3 children. He is retired from [employer]. He desires to be a full code. He is a former smoker. Smoking packs per day: 1 Smoking cigarettes per day: 20.0 Years smoked: 50 Smoking pack-years: 50.00 Smoking status: Former smoker Tobacco type: cigarettes and cigars Smoking end date: 01/10/01 Additional smoking assessment comments: smoked cigarettes but stopped long time ago. Alcohol intake: former Alcohol use details: 20 years ago. Substance use: never Substance use type: does not use Lack of Transportation: No Lack of Food: Never True Current Housing: I Have Housing Concerned About Future Housing: No Difficulty Paying Gas/Electric Bills: No Difficulty Paying for Meds: No Currently Unemployed: No Education: Grade School Difficulty w/ Childcare or Family Care: No Living arrangements: with family Occupation/Education: retired Gender identity (if verbalized by the patient): Male Spiritual care concerns: No Meds Home Medications and Allergies Home Medications Medication Instructions Recorded Confirmed Type aspirin 325 mg tablet 325 mg PO DAILY 05/16/22 02/04/24 History diphenhydramine HCl 25 mg tablet 25 mg PO QHS PRN Insomnia 05/16/22 02/04/24 History (Benadryl Allergy) rosuvastatin 40 mg tablet 40 mg PO DAILY #90 tabs 10/05/23 02/04/24 Rx testosterone cypionate 200 mg/mL 200 mg IM .EVERY 5 WEEKS #3 mL 12/05/23 02/04/24 Rx intramuscular oil budesonide 160 mcg-glycopyr 9 2 inh inhalation BID PRN SOB 02/04/24 02/04/24 History mcg-formot 4.8 mcg/actuation HFA inhaler (Breztri Aerosphere) esomeprazole magnesium 20 mg 20 mg PO DAILY 02/04/24 02/04/24 History capsule,delayed release (Nexium) Allergies Allergy/AdvReac Type Severity Reaction Status Date / Time No Known Allergies Allergy Verified 02/12/24 11:11 Vital Signs Vital Signs - 24 hr 02/12/24 11:11 Temperature 97 F L Pulse Rate 85 Respiratory Rate 18 Blood Pressure 163/78 H Pulse Oximetry 96 Oxygen Delivery Room Air Exam Const: General: comfortable and no acute distress HENMT: Face/Nose/Sinus: Normal nares present Eyes: General: appearance normal, both eyes and all related structures Neck: Neck: no JVD Resp: Auscultation: clear to auscultation bilaterally Cardio: Rate: regular rate Rhythm: regular rhythm GI: Inspection: non-distended GI Palp: Yes Soft to palpation Skin: General skin exam: normal color Neuro: General: gait normal Speech: normal speech Extrem: Gener
--- NOTE | 2024-02-12 11:38 | WPDANESEPPF ---
Anes - Initial Pre Proc Eval Procedure: Operation Date: 02/12/24 13:30 Proposed Procedures p Esophagogastroduodenoscopy - Christophe Marte MD Date/Time: 02/12/24 11:38 Surgeon: Christophe Marte MD Pre Op Diagnosis: Dysphagia Patient Data Age: 83 Gender: M Height: 1.65 m Weight: 54.4 kg Last Vital Signs Temp 97 F L 02/12/24 11:11 Pulse 85 02/12/24 11:11 Resp 18 02/12/24 11:11 BP 163/78 H 02/12/24 11:11 Pulse Ox 96 02/12/24 11:11 O2 Del Method Room Air 02/12/24 11:11 Allergies Allergy/AdvReac Type Severity Reaction Status Date / Time No Known Allergies Allergy Verified 02/12/24 11:11 Home Medications Medication Instructions Recorded Confirmed Type aspirin 325 mg tablet 325 mg PO DAILY 05/16/22 02/04/24 History diphenhydramine HCl 25 mg tablet 25 mg PO QHS PRN Insomnia 05/16/22 02/04/24 History (Benadryl Allergy) rosuvastatin 40 mg tablet 40 mg PO DAILY #90 tabs 10/05/23 02/04/24 Rx testosterone cypionate 200 mg/mL 200 mg IM .EVERY 5 WEEKS #3 mL 12/05/23 02/04/24 Rx intramuscular oil budesonide 160 mcg-glycopyr 9 2 inh inhalation BID PRN SOB 02/04/24 02/04/24 History mcg-formot 4.8 mcg/actuation HFA inhaler (Breztri Aerosphere) esomeprazole magnesium 20 mg 20 mg PO DAILY 02/04/24 02/04/24 History capsule,delayed release (Nexium) Patient hx anesthesia problems: none Family hx anesthesia problems: none Results Review: All pre-operative results and documents have been reviewed as part of the pre-operative evaluation. [facility] Past Medical History Medical History Anxiety CAD (coronary artery disease) Chronic renal insufficiency, stage III (moderate) CVA (cerebral vascular accident) Head and neck malignancy History of stroke Hyperlipidemia Hypertension Hypogonadism in male Skin cancer of face Surgical History Surgical History History of removal of pigmented skin lesion History of tonsillectomy Family History Family History Father Cancer Social History Social History (Reviewed 12/24/23 @ 10:05 by Chel Crocker [facility]) Social History: The patient lives with his who is the durable power corporate attorney for healthcare. The patient has 3 children. He is retired from [employer]. He desires to be a full code. He is a former smoker. Smoking packs per day: 1 Smoking cigarettes per day: 20.0 Years smoked: 50 Smoking pack-years: 50.00 Smoking status: Former smoker Tobacco type: cigarettes and cigars Smoking end date: 01/10/01 Additional smoking assessment comments: smoked cigarettes but stopped long time ago. Alcohol intake: former Alcohol use details: 20 years ago. Substance use: never Substance use type: does not use Lack of Transportation: No Lack of Food: Never True Current Housing: I Have Housing Concerned About Future Housing: No Difficulty Paying Gas/Electric Bills: No Difficulty Paying for Meds: No Currently Unemployed: No Education: Grade School Difficulty w/ Childcare or Family Care: No Living arrangements: with family Occupation/Education: retired Gender identity (if verbalized by the patient): Male Spiritual care concerns: No Anes - Eval Final PreProcedure Day of Procedure 02/12/24 11:38 Patient weight: normal Heart: regular rate and rhythm Lungs: clear to auscultation Airway: Mallampati scale class II Neurological: alert and oriented Last oral intake: >/= 8 hours ASA classification: III Emergent: no Anesthetic plan: proceed Anesthesia type and monitoring: general GIVS and standard monitoring Results Review: All pre-operative results and documents have been reviewed as part of the pre-operative evaluation. Informed Consent: The patient's anesthetic plan and its attendant risks and benefi
[2024-02-12 11:52] VITALS: BP 94/55; PULSE 76; RESP 22; O2SAT 97
[2024-02-12 12:02] VITALS: BP 135/84; PULSE 78; RESP 23; O2SAT 97
[2024-02-12 12:12] VITALS: BP 153/88; PULSE 74; RESP 20; O2SAT 97
== END 2024-02-12 12:17 | disposition home or self-care (01) ==
PROVIDERS: PCP Family Medicine; Visit Provider Internal Medicine Gastroenterology
PROC: 0DJ08ZZ Inspection of Upper Intestinal Tract, Via Natural or Artificial Opening Endoscopic (ICD-10-PCS; CPT 43235; principal; 2024-02-12 13:30)
DX: K22.2 Esophageal obstruction (principal); I12.9 Hypertensive chronic kidney disease with stage 1 through stage 4 chronic kidney disease, or unspecified chronic kidney disease; N18.30 Chronic kidney disease, stage 3 unspecified; F41.9 Anxiety disorder, unspecified; E29.1 Testicular hypofunction; I25.10 Atherosclerotic heart disease of native coronary artery without angina pectoris; Z79.82 Long term (current) use of aspirin; Z79.51 Long term (current) use of inhaled steroids; Z98.890 Other specified postprocedural states; Z87.891 Personal history of nicotine dependence; Z85.828 Personal history of other malignant neoplasm of skin; Z85.819 Personal history of malignant neoplasm of unspecified site of lip, oral cavity, and pharynx; Z86.73 Personal history of transient ischemic attack (TIA), and cerebral infarction without residual deficits; Z86.79 Personal history of other diseases of the circulatory system; Z92.3 Personal history of irradiation; Z80.9 Family history of malignant neoplasm, unspecified
CPT/HCPCS: 43249; C1726; J2704; J7120

== ENCOUNTER 2024-04-28 18:50 | Observation (INO) | payer MEDICARE, SELFPAY ==
[2024-04-28] VITALS (9 sets, daily range): BP systolic 110–136; BP diastolic 54–86; PULSE 88–103; RESP 15–18; O2SAT 85–95
--- NOTE | ~2024-04-28 | CT_ITS ---
EXAMINATION: CTA chest PE protocol DATE: 04/28/2024 23:36 INDICATION: hypoxia, eval for PE TECHNIQUE: Computed tomography angiography (CTA) of the chest was performed with 100 mL Omnipaque-350 intravenous contrast timed to evaluate the pulmonary arteries. Coronal maximum intensity projection 3D-reconstructions were created by the technologist. The dose-length product (DLP) was 522.76 mGy-cm. Automated exposure control and iterative reconstruction technique were employed. COMPARISON: 12/15/2023; CT chest 09/21/2022; a 12/25/2023. FINDINGS: Lung parenchyma and airways: Severe emphysema. Linear scarring in the right lower lobe, overall decre ased size since the prior examination. Patent airways. Pleura: Unremarkable. Thoracic inlet, axillae and chest wall: Unremarkable. Thoracic aorta: No significant dilation. No dissection. Moderate arch calcification. Mediastinum: Enlarged, calcified right hilar and paratracheal nodes, not significantly changed. Heart and pericardium: Normal. Coronary artery calcifications: Moderate. Upper abdomen: No significant finding. Bones: No acute osseous finding. Pulmonary arteries: Study quality: Adequate. No pulmonary emboli detected. IMPRESSION: No CT evidence of acute pulmonary embolus. No acute process detected in the chest. Decreased size of the focus of scarring/airspace disease in the right lower lobe, likely representing radiation pneumonitis. Residual disease not excluded. Reviewed, dictated and finalized at location K. IMPRESSION: No CT evidence of acute pulmonary embolus. No acute process detected in the chest. Decreased size of the focus of scarring/airspace disease in the right lower lob e, likely representing radiation pneumonitis. Residual disease not excluded.
--- NOTE | ~2024-04-28 | XR_ITS ---
EXAMINATION: XR chest 1V portable Exam Date/Time: 04/28/2024 20:08 CDT HISTORY: weakness NEAR SYNCOPE Comparison: 12/15/2023. RESULT: Lines, tubes, and devices: None. Lungs and pleura: Emphysematous change. Right lower lung scar. Cardiomediastinal silhouette: Stable. Other: No acute osseous or upper abdominal finding. IMPRESSION: No acute cardiopulmonary process. Reviewed, dictated and finalized at location K.
[2024-04-28 19:32] LABS: Appearance Urine Cloudy (Clear); Bacteria Urine None Seen /hpf; Bilirubin Urine Negative (Negative); Blood Urine Negative (Negative); Color Urine Yellow (Yellow); Glucose Urine UA Negative (Negative); Ketones Urine Negative (Negative); Leukocyte Esterase Ur Negative LEU/UL (Negative); Nitrate Urine Negative (Negative); Non Pathogenic Casts 0-2; Protein Urine 1+ mg/dL (Negative); RBC Urine 0-2 /hpf (0-2); Specific Grav Ur 1.016 (1.001-1.035); Squamous Epithelial Cell Urine None Seen /hpf (Few); Urobilinogen Urine 0.2 mg/dL (<2.0); WBC Urine 0-5 /hpf (0-3)
[2024-04-28 19:34] LABS: Add Urine Microscopic? YES
[2024-04-28 19:34] LABS: Hematocrit 47.3 % (42.0-52.0); Hemoglobin 15.6 g/dL (14.0-18.0); Immature Platelet Fraction Pct 4.2 % (0.9-11.2); Mean Corpuscular Hemoglobin 28.4 pg (26-34); Mean Platelet Volume 10.2 fl (7.4-10.4); Platelet Count Result 129 k/mm3 (150-375); Red Cell Distribution Width 13.8 % (11.5-14.5); White Blood Count 7.7 K/mm3 (4.5-10.0)
--- NOTE | 2024-04-28 19:45 | ECG_ITS ---
Test Date: 2024-04-28 19:59:43 Measurements Intervals [place] Rate: 84 P: 56 WA: 184 QRS: -54 QRSD: 80 T: 68 QT: 357 QTc: 424 Interpretive Statements SINUS RHYTHM POSSIBLE RIGHT VENTRICULAR CONDUCTION DELAY [RSR (QR) IN V1/V2] LEFT ANTERIOR FASCICULAR BLOCK [QRS AXIS <= -45, QR IN I, RS IN II] No previous ECG available for comparison Electronically Signed On 04-29-2024 12:04:37 CDT by Vilma Ware M.D.
[2024-04-28 19:56] LABS: Alanine Aminotransferase 26 U/L (6-50); Albumin Level 4.3 g/dL (3.5-5.1); Alkaline Phosphatase 91 U/L (38-126); Anion Gap 7 mmol/L (4-12); Aspartate Amino Transferase 46 U/L (17-59); Bilirubin,Total 0.7 mg/dL (0.2-1.3); Blood Urea Nitrogen 24 mg/dL (9-20); Calcium 9.2 mg/dL (8.4-10.2); Carbon Dioxide 25 mmol/L (22-30); Chloride 104 mmol/L (98-107); Estimated CRCL calculation 35 ml/min; Estimated Glomerular Filt Rate > 60; Glucose 104 mg/dL (65-110); Lipase 104 U/L (23-300); Potassium 4.2 mmol/L (3.4-5.0); Sodium 136 mmol/L (137-145)
[2024-04-28] MEDS: SODIUM CHLORIDE 0.9% IV 1,000 ML 999 ML IV CONT (19:58)
[2024-04-28 20:16] LABS: Creatine Kinase 59 U/L (55-170)
[2024-04-28 20:19] LABS: Band Neutrophils Percent 2 % (0-6); Lymphocytes Absolute Manual 0.53 K/mm3 (1.1-4.5); Monocytes Absolute Manual 0.23 K/mm3 (0.1-0.90); Monocytes Percent Manual 3 % (3-9); Neutrophils Absolute Manual 6.93 K/mm3 (1.3-6.7); Neutrophils Percent Manual 88 % (46-73); Platelet Estimate Slightly Decreased (Adequate); Schistocytes None Seen; Total Cells Counted 100
[2024-04-28 20:38] LABS: Influenza A QL RT-PCR Negative (Negative); Influenza B QL RT-PCR Negative (Negative); RSV RNA, RT-PCR Negative (Negative); SARS-CoV-2 RNA PCR Negative (Negative)
[2024-04-28 21:06] LABS: Magnesium 1.9 mg/dL (1.6-2.3)
[2024-04-28 21:20] LABS: Troponin I < 0.012 ng/mL (0.000-0.034)
[2024-04-28 21:29] LABS: Procalcitonin 0.4 ng/mL
[2024-04-28 23:15] LABS: Alveolar/Arterial O2 Gradient 51.2 mmHg; Base Excess ABG -4.6 mEq/l (+/-2.0); Device ROOM AIR; Fractional Inspired Oxygen 21 %; HCO3 ABG 19.3 mEq/l (22.0-26.0); Modified Allen's Test Pass; Oxygen Content ABG 19.6 %vol (16.0-22.0); Oxygen Saturation ABG 90.7 % (95.0-100.0); Oxyhemoglobin 89.9 % THb (90.0-100.0); PCO2 ABG 32.8 mmHg (35.0-45.0); PO2 ABG 59.3 mmHg (80.0-100.0); PO2 FiO2 Ratio Arterial Blood 2.82 %; Site Drawn RIGHT RADIAL; Total Hemoglobin 15.5 g/dL (12.0-18.0); pH ABG 7.387 (7.350-7.450)
[2024-04-28 23:19] LABS: NT Pro B Type Natriuretic Pept 158 pg/mL (19.9-100)
[2024-04-29] VITALS (16 sets, daily range): BP systolic 109–124; BP diastolic 56–83; PULSE 60–105; RESP 18–20; TEMP 36.1–36.5; O2SAT 89–95; BMI 19.8
--- NOTE | 2024-04-29 00:28 | ED.GENADULT ---
HPI - General Adult General Chief complaint: Nausea/Vomiting/Diarrhea Stated complaint: N/V, SYNCOPAL EPISODE Time Seen by Provider: 04/28/24 19:30 History of Present Illness HPI narrative: patient is a 83-year-old gentleman presents emergency department with chief complaint of not feeling well. Patient reports he was out working in the garden this morning and started to not feel well the patient came back inside felt like the house was hot he was having chills at that time but no fever the patient went outside was diaphoretic and patient was brought to urgent care and urgent care the patient was sent to the emergency department for further evaluation upon arrival to emergency department the patient reports that he is feeling better but was found initially by EMS to be saturating 90% on room air Related Data Home Medications Medication Instructions Recorded Confirmed aspirin 325 mg tablet 325 mg PO DAILY 05/16/22 03/14/24 diphenhydramine HCl 25 mg tablet 25 mg PO QHS PRN Insomnia 05/16/22 03/14/24 (Benadryl Allergy) budesonide 160 mcg-glycopyr 9 2 inh inhalation BID PRN SOB 02/04/24 03/14/24 mcg-formot 4.8 mcg/actuation HFA inhaler (Breztri Aerosphere) esomeprazole magnesium 20 mg 20 mg PO DAILY 02/04/24 03/14/24 capsule,delayed release (Nexium) Allergies Allergy/AdvReac Type Severity Reaction Status Date / Time No Known Allergies Allergy Verified 04/28/24 18:58 Review of Systems Review of Systems: A 10 system review of systems was completed on the patient and is negative except for what is stated in the HPI. Nursing and ancillary documentation was reviewed. [facility], [facility] Past Medical History Medical History Anxiety CAD (coronary artery disease) Chronic obstructive pulmonary disease Chronic renal insufficiency, stage III (moderate) CVA (cerebral vascular accident) Head and neck malignancy History of stroke Hyperlipidemia Hypertension Hypogonadism in male Lung cancer Skin cancer of face Surgical History Surgical History History of removal of pigmented skin lesion History of tonsillectomy Family History Family History Father Cancer Social History Social History Social History: The patient lives with his who is the durable power deputy commonwealth's attorney for healthcare. The patient has 3 children. He is retired from [employer]. He desires to be a full code. He is a former smoker. Smoking packs per day: 1 Smoking cigarettes per day: 20.0 Years smoked: 50 Smoking pack-years: 50.00 Smoking status: Former smoker Tobacco type: cigarettes and cigars Smoking end date: 01/10/01 Additional smoking assessment comments: smoked cigarettes but stopped long time ago. Alcohol intake: former Alcohol use details: 20 years ago. Substance use: never Substance use type: does not use Lack of Transportation: No Lack of Food: Never True Current Housing: I Have Housing Concerned About Future Housing: No Difficulty Paying Gas/Electric Bills: No Difficulty Paying for Meds: No Currently Unemployed: No Education: Grade School Difficulty w/ Childcare or Family Care: No Living arrangements: with family Occupation/Education: retired Gender identity (if verbalized by the patient): Male Spiritual care concerns: No Exam Narrative: GENERAL: Well-appearing, well-nourished, and in no acute distress. HEAD: Normocephalic, atraumatic. EYES: PERRLA and EOMI. ENT: Nares clear, no rhinorrhea or epistaxis. Mucous membranes moist. NECK: Supple. CHEST: Clear to auscultation. No respiratory distress. HEART: Regular rate and rhythm. No murmur heard. Normal peripheral pulses. ABDOMEN: Soft, nontender, nondistended, normal active bridgette
[2024-04-29] MEDS: methylPREDNISolone SOD SUCC 125 MG VIAL IV PUSH (00:34)
[2024-04-29] MEDS: IPRATROPIUM 0.5 MG/ALBUTEROL SULFATE 2.5 MG AMPUL.NEB 3 ML INHALATION ×3 (00:37→14:12)
--- NOTE | 2024-04-29 01:33 | ADMGEN ---
This patient, Ramon Sullivan, was admitted to Medical Room 261-01. Patient/family oriented to hospital policies and general routines including ID bracelet, bed and alarms, visiting hours, pain management, procedures, bathroom and other care routines, personal items, smoking policy, room service/diet, and visiting hours. Information on how to activate the Rapid Response Team has been discussed. Patient/Family are encouraged to report perceived risks to care and to ask questions if they do not understand what they are told or what they should do.
--- NOTE | 2024-04-29 03:54 | PM.IMHP ---
H&P: HPI History of Present Illness Date/Time: 04/29/24 03:54 Chief Complaint: Chills, nausea vomting Narrative: 83 yo man with PMH of throat and lung ca s/p chemorad, patient stated he was working in his yard yesterday morning when he started having chills and had 2 episodes of vomiting. noted he was taking to Urgent care from where he was transferred to the ER, ER provider noted EMS noted oxygen saturation to be 90% on room air. Patient denies any chest pain, SOB, abd pain, dysuria or fall. ER eval vital signs notable for temperature 97.2, SD 60, RR 20 BP 116/83, and O2 sat 94% on room air. labs notable for plts 129, abg 7.387/32.8/59.3/19.3, NT-proBNP 154, CT chest showed no PE and no Acute process, and showed decreased sice of the focus of scarring/airspace disease in the right lower lobe, likely representing radiation pneumonitis, residual disease not excluded Review of Systems Review of Systems: All other systems were reviewed and negative except as noted in the HPI above [facility] Past Medical History Medical History (Updated 04/29/24 @ 00:33 by David Grier MD) Anxiety CAD (coronary artery disease) Chronic obstructive pulmonary disease Chronic renal insufficiency, stage III (moderate) CVA (cerebral vascular accident) Head and neck malignancy History of stroke Hyperlipidemia Hypertension Hypogonadism in male Lung cancer Skin cancer of face Surgical History Surgical History History of removal of pigmented skin lesion History of tonsillectomy Family History Family History (Updated 04/29/24 @ 01:35 by Zena Siddiqui RN) Father Cancer Mother Cancer Sibling Cancer Social History Social History Social History: The patient lives with his who is the durable power prosecuting attorney for healthcare. The patient has 3 children. He is retired from [employer]. He desires to be a full code. He is a former smoker. Smoking packs per day: 1 Smoking cigarettes per day: 20.0 Years smoked: 50 Smoking pack-years: 50.00 Smoking status: Former smoker Tobacco type: cigarettes and cigars Smoking end date: 01/10/01 Additional smoking assessment comments: smoked cigarettes but stopped long time ago. Alcohol intake: former Alcohol use details: 20 years ago. Substance use: never Substance use type: does not use Do You Feel Safe in your Home?: Yes Lack of Transportation: No Lack of Food: Never True Current Housing: I Have Housing Concerned About Future Housing: No Difficulty Paying Gas/Electric Bills: No Difficulty Paying for Meds: No Currently Unemployed: No Education: Grade School Difficulty w/ Childcare or Family Care: No Living arrangements: with family Occupation/Education: retired Gender identity (if verbalized by the patient): Male Spiritual care concerns: No Meds Home Medications and Allergies Home Medications Medication Instructions Recorded Confirmed Type aspirin 325 mg tablet 325 mg PO DAILY 05/16/22 04/29/24 History diphenhydramine HCl 25 mg tablet 25 mg PO QHS PRN Insomnia 05/16/22 04/29/24 History (Benadryl Allergy) rosuvastatin 40 mg tablet 40 mg PO DAILY #90 tabs 10/05/23 04/29/24 Rx esomeprazole magnesium 20 mg 20 mg PO DAILY 02/04/24 04/29/24 History capsule,delayed release (Nexium) testosterone cypionate 200 mg/mL 200 mg IM .EVERY 5 WEEKS #3 mL 03/10/24 04/29/24 Rx intramuscular oil Allergies Allergy/AdvReac Type Severity Reaction Status Date / Time No Known Allergies Allergy Verified 04/28/24 18:58 Vital Signs Vital Signs - 24 hr 04/28/24 18:48 04/28/24 19:04 04/28/24 19:04 Temperature Pulse Rate 97 94 95 Respiratory Rate 15 Blood Pressure 136/86 113/60 124/57 L Pulse Oximetry 91 Oxygen Delivery Room Air Oxygen Flow Rate 04/28/24 19:05 04/28/24 19:1
[2024-04-29] MEDS: SODIUM CHLORIDE 0.9% IV 250 ML 75 ML IV CONT (04:18)
[2024-04-29] MEDS: FLUTICASONE/UMECLIDIN/VILANTER 200-62.5-25 MCG ELLIPTA 1 PUFF INHALATION (08:17)
[2024-04-29] MEDS: ASPIRIN 325 MG TABLET PO (08:42)
[2024-04-29] MEDS: predniSONE 20 MG TABLET PO (08:42)
[2024-04-29] MEDS: ROSUVASTATIN 20 MG TABLET 40 MG PO (08:42)
[2024-04-29] MEDS: ENOXAPARIN 40 MG/0.4 ML SYRINGE SUB-Q (08:43)
--- NOTE | 2024-04-29 16:08 | HOMEO2EVAL ---
Evaluation was performed at [facility] Home Oxygen Evaluation RC: Home Oxygen (O2) Evaluation Start: 04/29/24 15:47 Freq: ONCE Status: Active Protocol: RPE Activity Type Activity Date Activity User E-sign Co-sign Detail Recorded Client Recorded Date Recorded By Document 04/29/24 14:05 CAROLYN [email or web address] 04/29/24 16:08 CAROLYN Document 04/29/24 15:50 CAROLYN [id number] 04/29/24 16:08 CAROLYN Document 04/29/24 15:55 CAROLYN [email or web address] 04/29/24 16:08 CAROLYN 04/29/24 04/29/24 04/29/24 14:05 15:50 15:55 Home O2 Evaluation [Oxygen] -Test Phase Resting Resting Exercise -Oxygen Delivery Room Air Room Air Room Air [Pulse Oximetry] -Pulse Oximetry (90-100 %) 94 93 89 L [Pulse Rate] -Pulse Rate (60-100 beats/min) 101 H 99 105 H [Charges] -Evaluation Charges O2 Evaluation by Pulmonary
--- NOTE | 2024-04-29 16:09 | PCRCNOTE ---
HOME O2 EVAL COMPLETE. NO HOME O2 NEEDED AT THIS TIME. RN AWARE.
--- NOTE | 2024-04-29 16:15 | PM.DS ---
DS: Admitting Diagnosis Discharge Date 04/29/2024 Admitting Diagnosis Shortness of breath DS: Discharge Diagnosis Discharge Diagnosis (1) Acute hypoxic respiratory failure: Code(s): J96.01 - Acute respiratory failure with hypoxia Status: Acute (2) Lung cancer: Code(s): C34.90 - Malignant neoplasm of unspecified part of unspecified bronchus or lung Status: Acute (3) Dehydration: Code(s): E86.0 - Dehydration Status: Acute DS: Summary Hospital Course Hospital Course: Acute hypoxemic respiratory failure appears to have resolved as patient is currently on room air CT chest no PE, no pneumonia and showed improving radiation pneumonitis ?COPD Continue prednisone 20mg daily, duoneb treatment He is supposed to be on maintenance inhaler. But due to cost she has not been using it. Will get generic prescriptions sent out and advised her to follow-up with his PCP Home oxygen evaluation was done prior to discharge and passed the test # heat exhaustion with vomiting resolved continue IVF rehydration CK encourage oral intake # HTN continue home meds # hx of CVA continue aspirin and lipitor # CAD continue home meds # Hyperlipidemia continue Lipitor # COPD Continue above bronchodilators and Prednisone # CKD stage III monitor # Lung and throat CA s/p chemorad # DVT prophylaxis on Sq Lovenox # full code Time Spent with Patient Time attestation: Total time spent providing and/or coordinating discharge services: 35 minutes Exam Narrative: General alert and oriented x3, comfortable HEENT: atraumatic, normocephalic, PERRLA, EOMI and No palpable masses RESP: clear to auscultation CVS S1, S2, no murmur and RRR GI: non tender and non distended, BS present Extremities no obvious deformities Neuro: Alert and oriented, non focal DS: Data Data Completed and Pending Labs on day of discharge: Labs from last 24 hours 04/28/24 04/28/24 04/28/24 23:06 19:52 19:25 WBC 7.7 RBC 5.50 Hgb 15.6 Hct 47.3 MCV 86.0 MCH 28.4 MCHC 33.0 RDW 13.8 Plt Count 129 L MPV 10.2 Immature Gran % (Auto) Not Reportable Neut % (Auto) Not Reportable Lymph % (Auto) Not Reportable [place] % (Auto) Not Reportable Eos % (Auto) Not Reportable Baso % (Auto) Not Reportable Lymph # (Auto) Not Reportable [place] # (Auto) Not Reportable Eos # (Auto) Not Reportable Baso # (Auto) Not Reportable Abs Immat Gran (auto) Not Reportable Absolute Neuts (auto) Not Reportable Absolute Nucleated RBC Not Reportable Total Counted 100 Neutrophils % (Manual) 88 H Band Neutrophils % 2 Lymphocytes % (Manual) 7.0 L Monocytes % (Manual) 3 Nucleated RBC % Not Reportable Abs Neuts (Manual) 6.93 H Abs Lymphs (Manual) 0.53 L Abs Monocytes (Manual) 0.23 Platelet Estimate Slightly decreased % Immature Plt Fraction 4.2 Schistocytes None seen Puncture Site Right radial ABG pH 7.387 ABG pCO2 32.8 L ABG pO2 59.3 L ABG PO2/FiO2 Ratio 2.82 ABG HCO3 19.3 L ABG O2 Saturation 90.7 L ABG O2 Content 19.6 ABG Base Excess -4.6 A-a Gradient 51.2 Oxyhemoglobin 89.9 L Total Hemoglobin 15.5 O2 Delivery Device Room air O2 Liters/Min Not Reportable FiO2 21 Sodium 136 L Potassium 4.2 Chloride 104 Carbon Dioxide 25 Anion Gap 7 BUN 24 H D Creatinine 1.10 Estim Creat Clear Calc 35 Estimated GFR > 60 Glucose 104 Lactic Acid 1.0 Calcium 9.2 Magnesium 1.9 Total Bilirubin 0.7 AST 46 ALT 26 Alkaline Phosphatase 91 Total Creatine Kinase 59 Troponin I < 0.012 NT-Pro-B Natriuret Pep 158 H Total Protein 7.0 Albumin 4.3 Lipase 104 Procalcitonin 0.4 Urine Color Urine Appearance Urine pH Ur Specific [place] Urine Protein Urine Glucose (UA) Urine Ketones Ur
== END 2024-04-29 16:50 | disposition home or self-care (01) ==
LOC: ANHED 04-29 00:33 → ANH2MED 04-29 01:44
PROVIDERS: Emergency Medicine; Admitting Provider Internal Medicine; Emergency Provider Emergency Medicine; PCP Family Medicine; Visit Provider Internal Medicine
DX: J96.01 Acute respiratory failure with hypoxia (principal); E86.0 Dehydration; C34.90 Malignant neoplasm of unspecified part of unspecified bronchus or lung; Z87.891 Personal history of nicotine dependence; I25.10 Atherosclerotic heart disease of native coronary artery without angina pectoris; N18.30 Chronic kidney disease, stage 3 unspecified; Z86.73 Personal history of transient ischemic attack (TIA), and cerebral infarction without residual deficits; I12.9 Hypertensive chronic kidney disease with stage 1 through stage 4 chronic kidney disease, or unspecified chronic kidney disease; E78.5 Hyperlipidemia, unspecified; Z85.89 Personal history of malignant neoplasm of other organs and systems; Z20.822 Contact with and (suspected) exposure to COVID-19; Z79.82 Long term (current) use of aspirin
CPT/HCPCS: 36415; 36600; 71045; 71275; 80053; 81001; 82550; 82805; 83605; 83690; 83735; 83880; 84145; 84484; 85025; 85055; 87637; 93005; 94618; 94640; 96361; 96372; 96374; 99285; A9270; G0378; J1650; J2919; J7030; J7050; J7512; Q9967

== ENCOUNTER 2024-06-30 10:23 | Outpatient (CLI) | payer MEDICARE, SELFPAY ==
--- NOTE | ~2024-06-30 | CT_ITS ---
EXAMINATION: CT diagnostic chest w con DATE: 06/30/2024 10:59 INDICATION: C34.31 - Malignant neoplasm of lower lobe, right bronchus... TECHNIQUE: Computed tomography (CT) of the chest was performed with 100 mL Omnipaque-350 intravenous contrast. Additional 3D reconstructions utilizing coronal maximum intensity projection (MIP) were per formed. Automated exposure control and iterative reconstruction technique were employed. The dose-torsten gth product was 181.85 mGy-cm. COMPARISON: 04/28/24 FINDINGS: Severe emphysema. Horizontal band of discoid atelectasis/scarring in the right lower lobe with surrou nding irregular septal line thickening likely related to radiation pneumonitis following treatment of a reported right lower lobe lung cancer. There are few scattered small calcified pulmonary nodules a long with calcified right hilar lymph nodes consistent with old granulomatous disease. No other airsp regina opacities, pulmonary edema or pleural effusion. Heart size is normal. Atherosclerotic coronary ar kareen calcifications. No pericardial effusion.. Thoracic aorta is normal in caliber with no dissection . Subtle indeterminate poorly defined 1.5 cm hypodense/hypoenhancing lesion in the right hepatic lobe with differential including hemangioma or metastatic disease. Upper lumbar dextroscoliosis with mild compensatory levocurvature in the lower thoracic spine. Chronic mild anterior wedging of a few mid t horacic vertebral bodies. Moderate to severe thoracic and moderate upper lumbar spondylosis. IMPRESSION: 1. 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 2. 1.5 cm indeterminate hypoenhancing/hypodense lesion in the right hepatic lobe with differential in cluding hemangioma or metastatic disease. Recommend further evaluation with pre and postcontrast CT o r preferably MRI. 3. Severe emphysema. Reviewed, dictated and finalized at location A. IMPRESSION: 1. 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 2. 1.5 cm indeterminate hypoenhancing/hypodense lesion in the right hepatic lob e with differential including hemangioma or metastatic disease. Recommend furth er evaluation with pre and postcontrast CT or preferably MRI. 3. Severe emphysema.
[2024-06-30 10:54] LABS: Estimated Glomerular Filt Rate 58
== END 2024-06-30 10:24 | disposition home or self-care (01) ==
PROVIDERS: PCP Family Medicine; Visit Provider Radiology Radiation Oncology
DX: C34.31 Malignant neoplasm of lower lobe, right bronchus or lung (principal); J43.9 Emphysema, unspecified; J84.9 Interstitial pulmonary disease, unspecified
CPT/HCPCS: 71260; Q9967

== ENCOUNTER 2024-07-17 06:33 | Outpatient (CLI) | payer MEDICARE, SELFPAY ==
--- NOTE | ~2024-07-17 | MR_ITS ---
MRI of the abdomen: Clinical indication: Liver lesion. Technique: Coronal SSFSE ARC, WATER:coronal LAVA-FLEX, Coronal 2D FIESTA FatSat, Axial SSFSE BH ARC, Axial 3D DualEcho BH, Axial SSFSE-IR, Axial DWI b=500, Axial 2D FIESTA FatSat, pre and dynamic postco ntrast Axial LAVA ARC, postcontrast Coronal In and Opposed phase LAVA FLEX. Following intravenous adm inistration of 12 cc MultiHance gadolinium, T1-weighted fat-sat imaging was performed in the axial an d coronal planes. Findings: Gallbladder unremarkable. The common bile duct is normal in course and caliber. No filling defects are seen within the CBD. No evidence of intrahepatic biliary ductal dilatation. The pancreati c duct is normal in size. There is a 2.3 x 1.2 cm mass in the right hepatic lobe, T2 hyperintense, T1 hypointense, with discont inuous peripheral nodular enhancement with progressive fill in over time on postcontrast images. This is consistent with hemangioma. Spleen, pancreas, adrenals, kidneys appear normal. The aorta and the paraaortic regions appear normal . 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 Reviewed, dictated and finalized at [facility]. 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
== END 2024-07-17 06:34 | disposition home or self-care (01) ==
PROVIDERS: PCP Family Medicine; Visit Provider Radiology Radiation Oncology
DX: R93.2 Abnormal findings on diagnostic imaging of liver and biliary tract (principal)
CPT/HCPCS: 74183; A9577

== ENCOUNTER 2024-09-23 10:25 | Outpatient (CLI) | payer MEDICARE, SELFPAY | END 2024-09-23 10:26 | disposition home or self-care (01) | LOC: ANHPFT 10:28 | PROVIDERS: PCP Family Medicine; Visit Provider Internal Medicine Pulmonary Disease | DX: J44.9 Chronic obstructive pulmonary disease, unspecified (principal); Z87.891 Personal history of nicotine dependence | CPT/HCPCS: 94060; 94618; 94726; 94729 ==

== ENCOUNTER 2025-01-23 08:17 | Outpatient (CLI) | payer MEDICARE, SELFPAY ==
--- NOTE | ~2025-01-23 | CT_ITS ---
Clinical Indication: Lung cancer CT Scan of the Chest with Contrast: Technique: Contiguous sections were acquired throughout the chest after intravenous administration of 75 cc of Omnipaque 350. Dose reduction technique was used on this scan by utilizing automated exposu re control and iterative reconstruction technique. The dose-length product (DLP) was 151.15 mGy-cm. COMPARISON: 06/30/2024 Findings: There is no evidence of any significant mediastinal, hilar or axillary lymphadenopathy. There is no l arge central pulmonary embolus. There is no evidence of aortic dissection or aneurysm. There is no evidence of pleural or pericardial effusion. There is severe emphysema. Stable chronic consolidative change in the right lower lobe, which could r eflect chronic atelectasis or post treatment change. Images through the upper abdomen reveal right hepatic lobe probable hemangioma. There is extensive at herosclerotic disease of the visualized abdominal aorta. Impression: Stable chronic atelectasis or post treatment change in the right lower lobe. Severe emphysema. Probable right hepatic lobe hemangioma. Reviewed, dictated and finalized at [facility]. Impression: Stable chronic atelectasis or post treatment change in the right lower lobe. Severe emphysema. Probable right hepatic lobe hemangioma.
--- OUTSIDE RECORDS SUMMARY | 2025-01-23 08:33 | XMS_ITS ---
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 Past Treatment and Therapy Plans No past plan information found. Lifetime Dose Tracking * Chemical Lifetime Dose Automatic Entry Manual Entr y Effective Dose 27.3 mSv 27.3 mSv 0 mSv Total DLP 2,316 DLP 2,316 DLP 0 DLP CTDIvol Max 68.4 mGy 68.4 mGy 0 mGy CTDIvol Min 68.4 mGy 68.4 mGy 0 mGy
--- OUTSIDE RECORDS SUMMARY | 2025-01-23 08:33 | XMS_ITS | Clinical Summary ---
Author Organization [facility] Care Team Providers Care Drill Operator Name Role Phone Unavailable Primary Care Provider Unavailabl e Social History Tobacco Use Types Packs/Day Years Used Date Smoking Tobacco: Never Assessed Sex and Gender Information Value Date Recorded Sex Assigned at Not on file Legal Sex Male 12:44 AM CDT Gender Identity Not on file Sexual Orientation Not on file Plan of Treatment Health Maintenance Due Date Last Done Comments Hepatitis C Virus (HCV) Screening 1940 TdaP Immunization 1940 Pneumococcal Immunization (5 0+ years) (1 of 1 - PCV) 1990 Zoster Immunization (1 of 2) 1990 Respiratory Syncytial Virus (RSV) Immunization (Adult) (1 - 1-dose 75+ series) 2015 Influenza Immunization (#1) 2024 SARS-COV-2 Immunization (2023- season) 2024 Hepatitis B Immunization Aged Out No longer eligible based on patient's age to complete this topic Meningococcal Immunization (ACWY) Aged Out No longer eligible based on patient's age to complete this topic Rotavirus Immunization Aged Out No lo nger eligible based on patient's age to complete this topic
--- OUTSIDE RECORDS SUMMARY | 2025-01-23 08:33 | XMS_ITS | Clinical Summary ---
Author Organization [facility] Address [address] [place] [address] Phone Care Team Providers Care Airport Attendant Name Role Phone Unavailable Primary Care Provider Unavailabl e Allergies No known active allergies Medications ALPRAZolam (XANAX) 0.5 mg tablet Take 0.5 mg by mouth 3 times daily as needed for Anxiety. Active diphenhydrAMIN E (BENADRYL) 25 mg tablet Take 25 mg by mouth every 6 hours as needed for Allergies. Active ranitidine (ZANTAC) 75 mg Tablet Take 75 mg by mouth 2 times daily. Active esomeprazole (NexIUM) 20 mg Capsule, Delayed Release(E.C.) Take 20 mg by mouth daily before breakfast. gerd Active rosuvastatin (CRESTOR) 20 mg tablet Take 20 mg by mouth daily at bedtime. Active aspirin (HALLE) 325 mg tablet Take 325 mg by mouth daily. Active multivitamin (DAILY-JAIRO) tablet Take 1 Tablet by mouth daily. Active testosterone cypionate (DEPO-TESTOSTE ECHO) 100 mg/mL Oil Inject 200 mg by intramuscular injection one time only. 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 Encounters Date Type Department Care Team Description 01/14/2025 External Device Data [facility] Provider, Abstract 12/31/2024 External Device Data [facility] Provider, Abstract 12/30/2024 External Device Data [facility] Provider, Abstract 12/03/2024 External Device Data [facility] Provider, Abstract 12/03/2024 External Device Data [facility] Provider, Abstract from Last 3 Months Immunizations Immunization Administration Dates Next Due Influenza Seasonal Unspecified Formulation IM Social History Tobacco Use Types Packs/Day Years Used Date Smoking Tobacco: Former Cigarettes Q uit: 05/04/2004 Smokeless Tobacco: Never Alcohol Use Standard Drinks/Week Comments No 0 (1 standard drink = 0.6 oz pur e alcohol) Sex and Gender Information Value Date Recorded Sex Assigned at Not on file Legal Sex Male 7:02 PM CDT Gender Identity Not on file Sexual Orientation Not on file Occupation Industry Job Start Date Job End Date Not on file Not on file Not on file Not on file Last Filed Vital Signs Vital Sign Reading Time Taken Comments Blood Pressure 128/76 02/22/2023 9:28 AM CDT Pulse 78 02/16/2022 10:08 AM CDT Temperature 36.5 C (97.7 F) 02/14/2020 8:21 AM CDT Respiratory Rate 18 02/16/2022 10:08 AM CDT Oxygen Saturation 96% 02/14/2020 8:21 AM CDT Inhaled Oxygen Concentration - - Weight 56.7 kg (125 lb) 02/16/2022 10:08 AM CDT Height 162.6 cm (5' 4 ) 02/16/2022 10:08 AM CDT Body Mass Index 21.46 02/16/2022 10:08 AM CDT Plan of Treatment Health Maintenance Due Date Last Done Comments DTAP/TDAP/TD VACCINES (1 - Tdap) 1959 PNEUMOCOCCAL VACCINE 50+ YEARS (1 of 1 - PCV) 08/26/19 90 ZOSTER VACCINE (1 of 2) 1990 RSV VACCINE (60+ or ) (1 - 1-dose 75+ series) 2015 INFLUENZA VACCINE (#1) 2024 08/12/2019 Insurance MEDICARE PART A AND B BCBS SUPP Advance Directives For more information, please contact: [phone] * Full Code (Latest Code Status on File) Date Activated Date Inactivated Comments 02/13/2020 11:21 AM 02/14/2020 11:39 AM * Full Code Date Activated Date Inactivated Comments 02/13/2020 7:26 AM 02/13/2020 11:21 AM * Full Code Date Activated Date Inactivated Comments 02/13/2020 5:44 AM 02/13/2020 7:26 AM * Full Code Date Activated Date Inactivated Comments 05/13/2014 12:21 PM 05/16/2014 12:16 PM * Full Code Date Activated Date Inactivated Comments 05/13/2014 7:42 AM 05/13/2014 12:21 PM
[2025-01-23 08:37] LABS: Estimated Glomerular Filt Rate 53
== END 2025-01-23 08:18 | disposition home or self-care (01) ==
LOC: ANHIMG 08:19
PROVIDERS: PCP Family Medicine; Visit Provider Radiology Radiation Oncology
DX: C34.31 Malignant neoplasm of lower lobe, right bronchus or lung (principal); J43.9 Emphysema, unspecified
CPT/HCPCS: 71260; Q9967

== ENCOUNTER 2025-10-12 08:50 | Outpatient (CLI) | payer MEDICARE, SELFPAY ==
--- OUTSIDE RECORDS SUMMARY | 2025-10-12 09:23 | XMS_ITS | Clinical Summary ---
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 Immunizations Immunization Administration Dates Next Due Influenza Seasonal Unspecified Formulation IM Social History Tobacco Use Types Packs/Day Years Used Date Smoking Tobacco: Former Cigarettes 0 Q uit: 05/04/2004 Smokeless Tobacco: Never Alcohol [...] 10:08 AM CDT Height 162.6 cm (5' 4) 02/16/2022 10:08 AM CDT Body Mass Index 21.46 02/16/2022 10:08 AM CDT Plan of Treatment Health Maintenance Due Date Last Done Comments DTAP/TDAP/TD VACCINES (1 - Tdap) 1959 PNEUMOCOCCAL VACCINE 50+ YEARS (1 of 1 - PCV) 08/26/19 90 ZOSTER VACCINE (1 of 2) 1990 RSV VACCINE (60+ or ) (1 - 1-dose 75+ series) 2015 INFLUENZA VACCINE (#1) 2025 08/12/2019 Insurance MEDICARE PART A AND B BCBS SUPP Advance Directives For more information, please contact: [phone] * Full Code (Latest Code Status on [...]
--- OUTSIDE RECORDS SUMMARY | 2025-10-12 09:23 | XMS_ITS | Clinical Summary ---
Author Organization [facility] Care Team Providers Care Certified Personal Trainer Name Role Phone Unavailable Primary Care Provider [...] 1-dose 75+ series) 2015 Influenza Immunization (#1) 2025 08/12/2019 SARS-COV-2 Immunization ( season) 2025 Hepatitis B Immunization Aged Out No longer eligible based on patient's age to complete this topic Human Papillomavirus (HPV) Immunization Aged Out No longer eligible b ased on patient's age to complete this topic Meningococcal Immunization (ACWY) Aged Out No longer eligible based on patient's age to complete this topic Rotavirus Immunization Aged Out No lo nger eligible based on patient's age to complete this topic
--- OUTSIDE RECORDS SUMMARY | 2025-10-12 09:23 | XMS_ITS ---
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
[2025-10-14 16:08] LABS: Free Testosterone (Direct) 2.5 pg/mL (6.6-18.1)
== END 2025-10-12 08:51 | disposition home or self-care (01) ==
PROVIDERS: Visit Provider Student in an Organized Health Care Education/Training Program
DX: E29.1 Testicular hypofunction (principal)
CPT/HCPCS: 84402; 84403